=== PATIENT | male | born 1960 | race Two or more races ===

== ENCOUNTER 2016-10-17 15:27 | Emergency (ER) | payer OTHER ==
[~2016-10-17] VITALS: Ht 160 cm; Wt 72.6 kg
--- NOTE | 2016-10-17 15:54 | Emergency Room Report ---
History of Present Illness General Chief Complaint: Upper Extremity Injury Source: Patient Present Illness HPI The patient is a 56-year-old male presenting for left shoulder pain after a work -related injury. He states that he swallowed a heavy trash bag over his head and felt a sharp pain to the left shoulder. He subsequently obtained MRI which showed rotator cuff injury as described below. Pain has continued and is a 10 out of 10 sharp sensation and does not radiate from the left shoulder. Worse with movement. Denies any numbness or tingling. He denies any other injury or symptoms The patient has brought in his MRI results from [facility] done on September 25 which states: Near complete tear of infraspinatus tendon. Moderate grade partial tear of the supraspinatus tendon. Significant atrophy of teres minor. Degenerative tearing of superior labrum Allergies: Coded Allergies: No Known Allergies (Unverified , 10/17/16) Patient History Past Medical History: see triage record Pertinent Family History: none Reviewed Nursing Documentation: PMH: Agreed, PSxH: Agreed Nursing Documentation-PMH Past Medical History: No Stated History Review of Systems All Other Systems: negative except mentioned in HPI Physical Exam Vital Signs Date Time Temp Pulse Resp B/P (MAP) Pulse Ox O2 Delivery O2 Flow Rate FiO2 10/17/16 15:38 97.9 80 20 140/95 99 Room Air Sp02 EP Interpretation: reviewed, normal General Appearance: no apparent distress, alert, GCS 15, non-toxic Head: normocephalic, atraumatic Eyes: bilateral eye normal inspection, bilateral eye PERRL Neck: full range of motion, no bony tend, supple/symm/no masses Cardiovascular #1: regular rate, rhythm, no edema Musculoskeletal: normal range of motion, other - weakness with L shoulder adduction and flexion, tender - TTP over the L posterior shoulder Neurologic: alert, oriented x3, responsive, motor strength/tone normal, sensory intact, speech normal Psychiatric: judgement/insight normal, memory normal, mood/affect normal, no suicidal/homicidal ideation Skin: normal color, no rash, warm/dry, well hydrated Procedures Splinting Splinting : Consent: Verbal Location: L arm Pre-Made Type: sling Pre-Proc Neuro Vasc Exam: normal Post-Proc Neuro Vasc Exam: normal Patient Tolerated: Well Complications: None Medical Decision Making PA Attestation Dr. Cummins is my supervising physician. Patient management was discussed with my supervising physician Diagnostic Impression: Primary Impression: Rotator cuff injury Qualified Codes: S46.002A - Unspecified injury of muscle(s) and tendon(s) of the rotator cuff of left shoulder, initial encounter ER Course The patient is a 56-year-old male presenting for left shoulder pain Ddx considered include but not limited to sprain/strain, fracture, contusion PE: vitals WNL. NAD There is tenderness to palpation of the left posterior shoulder. Full active range of motion. There is noted weakness with left shoulder adduction and flexion. Left shoulder sling was placed The patient will be discharged home with pain medication and needs to followup with orthopedics. He will also followup with workers compensation. Diagnosis made via findings from MRI done at [facility]. ER precautions are given Last Vital Signs Date Time Temp Pulse Resp B/P (MAP) Pulse Ox O2 Delivery O2 Flow Rate FiO2 10/17/16 15:38 97.9 80 20 140/95 99 Room Air Status: improved Disposition: HOME, SELF-CARE Condition: Improved Scripts Ibuprofen* (MOTRIN*) 600 Mg Tablet 600 MG ORAL Q8H Y for For Pain, #30 TAB 0 Refills Prov: TERZIANCAROLE P.A. 10/17/16 Tramadol Hcl* (ULTRAM*) 50 Mg Tablet 50 MG ORAL Q6H Y for For Pain, #10 TAB 0 Refills Prov: TERZIAN,CAROLE P.A. 10/17/16 CAROLE SCHUSTER P.A. Oct 17, 2016 15:54
[2016-10-17] MEDS ORDERED: traMADol 50mg tab ORAL ONE (16:00)
[2016-10-17] MEDS ORDERED: IBUPROFEN600 MG ORAL (16:12)
[2016-10-17] MEDS ORDERED: TRAMADOL HCL50 MG ORAL (16:12)
[2016-10-17 16:20] VITALS: BP 136/89
== END 2016-10-17 16:30 | disposition home or self-care (01) ==
LOC: EMR 16:25
DX: S46.002A Unspecified injury of muscle(s) and tendon(s) of the rotator cuff of left shoulder, initial encounter (principal); X50.9XXA Other and unspecified overexertion or strenuous movements or postures, initial encounter; Y93.9 Activity, unspecified; Y99.0 Civilian activity done for income or pay
CPT/HCPCS: 99284